=== PATIENT | male | born 1985 | race Caucasian/White ===

== ENCOUNTER 2019-05-06 13:36 | Emergency (ER) | payer OTHER ==
[~2019-05-06] VITALS: Ht 180.3 cm; Wt 83.9 kg
[~2019-05-06 13:36] MED LIST: CYCL10 PO; Percocet 5-3251 EACH PO
== END 2019-05-06 15:09 | disposition home or self-care (01) ==
LOC: ER 13:36
DX: S61.212A Laceration without foreign body of right middle finger without damage to nail, initial encounter (principal); F17.200 Nicotine dependence, unspecified, uncomplicated; W26.8XXA Contact with other sharp object(s), not elsewhere classified, initial encounter; Y99.0 Civilian activity done for income or pay
CPT/HCPCS: 12002; 90471; 90714; 99282-25

== ENCOUNTER 2024-10-30 07:51 | Emergency (ER) | payer OTHER ==
[~2024-10-30] VITALS: Ht 180.3 cm; Wt 83.9 kg
[2024-10-30 09:25] LABS: BASOPHILS ABSOLUTE AUTO 0.02 K/mm3 (0.00-0.23); BASOPHILS PERCENT AUTO 0 % (0-2); EOSINOPHILS PERCENT AUTO 0 % (0-6); Hematocrit 40.8 % (37.0-53.0); Hemoglobin 14.8 g/dL (13.5-17.5); IMMATURE GRAN ABSOLUTE AUTO 0.03 K/mm3 (0.00-0.10); IMMATURE GRAN PERCENT AUTO 0 % (0-1); LYMPHOCYTES ABSOLUTE AUTO 0.55 K/mm3 (0.84-5.20); LYMPHOCYTES PERCENT AUTO 5 % (21-46); MONOCYTES ABSOLUTE AUTO 0.36 K/mm3 (0.16-1.47); MONOCYTES PERCENT AUTO 3 % (4-13); Mean Corpuscular HGB Conc 36.3 g/dL (31.5-36.5); Mean Corpuscular Volume 91 fL (80-100); Mean Platelet Volume 8.9 fL (9.1-12.4); NEUTROPHILS ABSOLUTE AUTO 11.37 K/mm3 (1.96-9.15); NEUTROPHILS PERCENT AUTO 92 % (41-73); Platelet Count 297 K/mm3 (150-400); RDW Coefficient Variation 12.5 % (11.7-14.2); RDW Standard Deviation 41.3 fL (35.1-46.3); Red Blood Cell Count 4.49 M/mm3 (4.30-5.90); White Blood Cell Count 12.33 K/mm3 (4.00-11.30)
[2024-10-30 09:46] LABS: Alanine Aminotransfer (ALT/SGP 76 U/L (12-78); Albumin, Blood 4.2 g/dL (3.4-5.0); Alk Phos 92 U/L (50-136); Anion Gap 9 mmol/L (3-11); Aspartate Aminotrans (AST/SGOT 52 U/L (12-37); Bilirubin, Total 0.8 mg/dL (0.1-1.0); Blood Urea Nitrogen 9 mg/dL (8-24); Bun/Creatinine Ratio 14.6 (12.0-20.0); CO2, Blood 26 mmol/L (21-32); Calcium, Blood 9.1 mg/dL (8.5-10.1); Chloride, Blood 98 mmol/L (98-108); Creatinine, Blood 0.62 mg/dL (0.60-1.20); Ethanol (Alcohol), Blood, Med <3 mg/dL; Globulin, Blood 4.2 g/dL (2.2-4.0); Glomerular Filtration Rate 125 (60-); Glucose, Blood 159 mg/dL (70-99); Magnesium, Blood 2.4 mg/dL (1.6-2.4); Potassium, Blood 4.2 mmol/L (3.5-5.5); Sodium, Blood 129 mmol/L (136-145); Total Protein, Blood 8.4 g/dL (6.4-8.2)
[2024-10-30 10:30] VITALS: BP 140/93
[2024-10-30] MEDS ORDERED: CHLO25 PO (10:43)
== END 2024-10-30 10:51 | disposition home or self-care (01) ==
LOC: ER 07:51
PROVIDERS: Emergency Medicine
DX: R56.9 Unspecified convulsions (principal); F10.90 Alcohol use, unspecified, uncomplicated
CPT/HCPCS: 70450; 80053; 80320; 83735; 85025; 93005; 93010; 99285-25